=== PATIENT | male | born 1965 | race Caucasian/White ===

== ENCOUNTER 2022-06-02 08:36 | Day surgery (SDC) | payer BC, SELFPAY ==
[2022-06-02] VITALS (11 sets, daily range): BP systolic 122–158; BP diastolic 76–97; PULSE 45–57; RESP 14–20; TEMP 36.5–37; O2SAT 94–99; BMI 36.9
[2022-06-02] MEDS: LACTATED RINGERS 1000 ML 1,000 ML 100 ML IV (09:10)
[2022-06-02] MEDS: SODIUM CHLORIDE 0.9 % (FLUSH) 10 ML SYRINGE IVF (09:16)
[2022-06-02] MEDS: CEFAZOLIN 2 GM INJ IVP (12:05)
[2022-06-02] MEDS: LACTATED RINGERS 1000 ML 1,000 ML IV (12:15)
[2022-06-02] MEDS: BUPIVACAINE 0.25% 30 ML 12 ML INJECTION (12:41)
--- NOTE | 2022-06-02 12:47 | PM.GSPRC ---
Operative Note Date of procedure: 06/02/22 Type of Procedure: Open umbilical hernia repair Procedure Description: After discussing the risks and benefits of the procedure, the patient signed informed consent.? The operative site was marked and the patient was brought to the operating room and placed on the operating table in supine position.? Care was taken to pad the patient's pressure points.?? The patient was then intubated by anesthesia.?? The operative site was then prepped and draped in the usual sterile fashion.? A time-out was then performed. Local anesthetic was injected into the fascia, skin and subcutaneous tissues. A curvilinear incision was made at the umbilicus. Dissection was carried down into the subcutaneous tissue using cautery. The hernia sac was encountered and care was taken to not enter it. Dissection was taken down to the fascia, and the umbilical stalk was carefully dissected off of the hernia sac. The hernia sac contained fat. The fat was incarcerated and unable to be reduced. I entered the hernia sac and freed the hernia circumferentially from the fascial edges. Once I did this, I was able to gradually reduce the fat into the abdomen. The fascial edges were then cleared circumferentially. The hernia was 2 cm in size and so the decision was made to use a piece of mesh. A preperitoneal pocket was created using a combination of blunt dissection and cautery. Hemostasis appeared adequate. Once the posterior fascia was clear, a piece of medium Ventralex ST hernia mesh was placed in the preperitoneal space with care to ensure that it laid flat. This was secured into place using 2 0 PDS interrupted sutures. The tails were then trimmed and the fascial opening was closed with interrupted Nurolon suture. The umbilicus was reapproximated to the fascia. The skin was then closed with running absorbable suture. A sterile dressing was then applied. Instrument sponge and needle counts were correct at the end the case ? The patient was then woken and transported to the recovery area in stable condition. ? The patient tolerated the procedure well. Findings: 2 cm fat containing incarcerated umbilical hernia Anesthesia: HUMZA Surgeon: Destiney Raines MD Estimated blood loss (mL): 5 Condition: stable Disposition: PACU
--- NOTE | 2022-06-02 13:05 | W.ANESCHARGE ---
Anesthesia Charges Start Date/Time Anesthesia Start Date: 06/02/22 Anesthesia Start Time: 11:58 Stop Date/Time Anesthesia Stop Date: 06/02/22 Anesthesia Stop Time: 13:03 Summary Emergency: No
--- NOTE | 2022-06-02 14:52 | W.ANESCHARGE ---
Anesthesia Charges Start Date/Time Anesthesia Start Date: 06/02/22 Anesthesia Start Time: 11:58 Stop Date/Time Anesthesia Stop Date: 06/02/22 Anesthesia Stop Time: 13:03 Summary Emergency: No
== END 2022-06-02 14:20 | disposition home or self-care (01) ==
PROVIDERS: PCP Surgery; Visit Provider Surgery
PROC: (CPT 49587; principal; 2022-06-02 10:00)
DX: K42.0 Umbilical hernia with obstruction, without gangrene (principal)
CPT/HCPCS: 49587; 00750; 00800; A4467; C1781; J0330; J0690; J1100; J1885; J2250; J2405; J2704; J2710; J3010; J3490; J7120

== ENCOUNTER 2023-07-10 16:41 | Emergency (ER) | payer BC, SELFPAY ==
[2023-07-10 16:52] VITALS: BP 189/105; PULSE 56; RESP 18; TEMP 36.1; O2SAT 96; BMI 36.6
--- NOTE | 2023-07-10 18:11 | CRLHL7_ITS ---
For Patients: As a result of the Century Cures Act, medical imaging exams and procedure reports are released immediately into your electronic medical record. You may view this report before your referring provider. If you have questions, please contact your health care provider. INDICATION: Dyspnea on exertion. TECHNIQUE: Chest 2 views. COMPARISON: None. FINDINGS: Cardiovascular and mediastinum: Heart size and vasculature are normal in caliber and appearance. Lungs and pleural spaces: Lungs are clear. No sign of infiltrate or mass. No sign of pleural effusion. No pneumothorax. Bones and soft tissues: No significant findings. IMPRESSION: No acute or significant findings. Dictated by Rickey Key MD @ 07/10/2023 7:45:20 PM (Electronically Signed)
--- NOTE | 2023-07-10 18:33 | ED.GENADULT ---
HPI - General Adult General Date Seen: 07/10/23 Chief complaint: Shortness of Breath/Dyspnea Stated complaint: Difficulty breathing, triage nurse- blood clot? Time Seen by Provider: 07/10/23 17:43 History of Present Illness HPI narrative: This is a very pleasant 58-year-old gentleman accompanied to the ER this evening by his for evaluation of shortness of breath. He has a past medical history including overweight, hypertension, dyslipidemia, gout. He has no previous history of heart or lung disease, coronary disease, asthma, CHF. He has never been a smoker. He has noted some mild dyspnea especially orthopnea when he tries to lay down tonight that is been going on perhaps for about a year so. He notes that he gets short of breath when he lays down and tries to go to sleep. He is generally able to sleep through the night and has not awoken by paroxysmal episodes of dyspnea. He notes that his been a little bit more prominent for the past couple of weeks. He does not really have shortness of breath with exertion. It sounds like he does not really do a lot of walking. He also notes he sometimes gets short of breath when he bends over. In particular, he had a short walk about 100 [address] to his [place] stand to go deer hunting this weekend it did not get short of breath. Once he was up in his stand he did feel short of breath when he bent sideways to get a drink from his water bottle. Because the symptoms had gotten worse lately he tried to call his primary care office to get an appointment for a checkup. When he called the office today, the triage nurse told to come straight to the ER. He did not think that his symptoms were that severe or acute so he did go to work today and came in this evening after work. He does not have any palpitations. No dizzy spells. No cough or fever. He does note that several coworkers were recently sick with a URI, but he was having symptoms long before he was around them. No history of asthma or emphysema. Related Data Home Medications Medication Instructions Recorded Confirmed allopurinol 300 mg tablet 300 mg PO DAILY 05/31/22 06/02/22 aspirin 81 mg tablet,delayed 81 mg PO DAILY 05/31/22 06/02/22 release (Ecotrin Low Strength) atorvastatin 20 mg tablet (Lipitor) 20 mg PO DAILY 05/31/22 06/02/22 calcium polycarbophil 625 mg 625 mg PO BID 05/31/22 06/02/22 tablet (Fiber (calcium polycarbophil)) losartan 100 mg tablet (Cozaar) 100 mg PO DAILY 05/31/22 06/02/22 metoprolol tartrate 25 mg tablet 75 mg PO BID 05/31/22 06/02/22 terazosin 2 mg capsule 2 mg PO DAILY 05/31/22 06/02/22 Previous Rx's Medication Instructions Recorded hydrocodone 5 mg-acetaminophen 325 1 tab PO Q6H PRN pain #14 tabs 06/02/22 mg tablet Allergies Allergy/AdvReac Type Severity Reaction Status Date / Time No Known Drug Allergies Allergy Verified 06/02/22 08:44 [facility] Medical History (Updated 07/10/23 @ 21:52 by Ruiz Delacruz MD) GERD (gastroesophageal reflux disease) ?K21.9 - Gastro-esophageal reflux disease without esophagitis (ICD-10) Umbilical hernia without obstruction or gangrene ?K42.9 - Umbilical hernia without obstruction or gangrene (ICD-10) Mixed hyperlipidemia ?E78.2 - Mixed hyperlipidemia (ICD-10) History of gout ?Z87.39 - Personal history of other diseases of the musculoskeletal system and connective tissue (ICD-10) Essential (primary) hypertension ?I10 - Essential (primary) hypertension (ICD-10) Surgical History (Updated 05/31/22 @ 08:37 by Anil Echevarria RN) History of hernia repair ?Z98.890 - Other specified postprocedural states (ICD-10) ?Z87.19 - Personal history of other diseases of the digestive system (ICD-10) Social History Smoking Status: Never smoker Do you use any of these nicotine containing products: None Second hand tobacco smoke exposure: No How often do you have a drink containing alcohol: 4 or more times a week How many standard drinks containing alcohol do you have on a typical day: 3 or 4 How often do you have six or more drinks on one occasion: Monthly AUDIT-C Alcohol total score: 7 Non-prescribed substance use: denies use service: No Exam Narrative: Exam Narrative: Constitutional: Appears well-developed and well-nourished. Heavyset and well muscled. Robust. Alert. Conversant. Non toxic. HENT: Head: Atraumatic. Nose: Nose normal. Mouth/Throat: Oral mucosa is clear and moist. no trismus. Pharynx normal. Tonsils symmetric. No tonsillar enlargement, erythema, or exudate. Eyes: Conjunctivae normal. EOM normal. Pupils equal, round, and reactive to light. No scleral icterus. Neck: Normal range of motion. Neck supple. No tracheal deviation present. No JVD Cardiovascular: Normal rate, regular rhythm. No gallop. No friction rub. No murmur heard. Symmetric radial and PT artery pulses Pulmonary/Chest: Effort normal. No stridor. No respiratory distress. No wheezes. No rales. No rhonchi . No tenderness. Abdominal: Soft. Bowel sounds normal. No distension. No mass. No tenderness. No rebound. No guarding. Musculoskeletal: RUE: Normal range of motion. No tenderness. No deformity LUE: Normal range of motion. No tenderness. No deformity RLE: Normal range of motion. No edema. No tenderness. No deformity LLE: Normal range of motion. No edema. No tenderness. No deformity Lymph: No cervical adenopathy. Neurological: Alert and oriented to person, place, and time. Normal strength. CN II-VII intact. No sensory deficit. GCS eye subscore is 4. GCS verbal subscore is 5. GCS motor subscore is 6. Normal coordination Skin: Skin is warm and dry. No rash noted. No pallor. Normal capillary refill. Psychiatric: Normal mood. Normal affect. Const: Vital Signs, click to edit/add: Vital Signs - 24 hr 07/10/23 16:52 Temperature 97 F L Pulse Rate [Pulse Oximeter] 56 L Respiratory Rate 18 Blood Pressure [Ri t Upper Arm] 189/105 H Pulse Oximetry 96 Oxygen Delivery Me thod Room Air Course Course ED Course: Recheck-no change. Oxygen still normal. Discussed findings with the patient and his . They are in agreement with plan for outpatient workup. Vital Signs Vital signs: Initial Vital Signs Temperature 97 F L 07/10/23 16:52 Temperature Source Temporal Artery Scan 07/10/23 16:52 Pulse Rate 56 L 07/10/23 16:52 Pulse Rhythm Regular 07/10/23 16:52 Respiratory Rate 18 07/10/23 16:52 Blood Pressure 189/105 H 07/10/23 16:52 Blood Pressure Mean 133 H 07/10/23 16:52 Blood Pressure Position Sitting 07/10/23 16:52 Pulse Oximetry 96 07/10/23 16:52 Oxygen Delivery Method Room Air 07/10/23 16:52 Vital Signs Temperature 97 F L 07/10/23 16:52 Pulse Rate 56 L 07/10/23 16:52 Respiratory Rate 18 07/10/23 16:52 Blood Pressure 189/105 H 07/10/23 16:52 Pulse Oximetry 96 07/10/23 16:52 Oxygen Delivery Method Room Air 07/10/23 16:52 Temperature 97 F L 07/10/23 16:52 Pulse Rate 56 L 07/10/23 16:52 Respiratory Rate 18 07/10/23 16:52 Blood Pressure 189/105 H 07/10/23 16:52 Pulse Oximetry 96 07/10/23 16:52 Oxygen Delivery Method Room Air 07/10/23 16:52 Medications Administered Medications: Discontinued Medications Generic Name Dose Route Start Last Admin Trade Name Freq PRN Reason Stop Dose Admin Albuterol 2.5 mg 07/10/23 18:11 07/10/23 18:36 Albuterol Sulfate 2.5 Mg/3 Ml Vial.Neb NEB 07/10/23 18:12 2.5 mg ONCE ONE Administration Medical Decision Making MDM Narrative Medical decision making narrative: This patient presents to the ER today for evaluation of shortness of breath, in particular orthopnea and shortness of breath with flexion that has been present for the past year or so but getting worse over the past few weeks. Differential was broad. No evidence of palpitations, syncope or other cardiac dysrhythmia. We considered possible ACS, however he is not really having any chest pain, just shortness of breath. workup with EKG and troponin is negative. Given time since onset of symptoms, I do not think the patient needs to be admitted for further sets of enzymes. EKG shows no evidence for pericarditis. Clinical presentation not suggestive of myocarditis. He does have sinus bradycardia. He is on beta-miroslava for his blood pressure. Chest x-ray shows no evidence for pneumonia, pneumothorax, pulmonary edema, pleural effusion, rib fracture, cardiomegaly. Mediastinum is normal on the x-ray. The patient has no ripping or tearing pain through to the back and has symmetric pulses on exam, no other acute neuro findings so I doubt aortic dissection. Risk of radiation and contrast exposure would outweigh the benefit of CT angiogram. We considered PE for this patient. He did have a recent trip to [place]. However no evidence for a DVT. Symptoms are actually present long before his trip to [place]. He is overall low risk, but not 0 risk. Screening D-dimer is normal. Therefore will hold off on CT [place]. He does not have a history of COPD/asthma. Nonsmoker. He did have very scant wheezing on my lung exam today. We administered nebulizer.[]. He is not anemic. No heart murmur to suggest aortic stenosis. However with his dyspnea on exertion I do think he needs primary care follow-up for echocardiogram and further workup. With reasonable clinical confidence, I think the patient is safe for outpatient follow up. Discussed return precautions. Questions answered. Patient voices comfort with the plan. Lab Data Labs: Lab Results 07/10/23 Range/Units 18:35 WBC 6.69 (4.50-11.00) K/uL RBC 3.97 L (4.30-5.90) m/uL Hgb 12.8 L (13.5-17.5) gm/dL Hct 37.5 (37.0-53.0) % MCV 95 (80-100) fL MCH 32 (26-34) pg MCHC 34 (32-36) gm/dL RDW Coeff of Kelly 12.7 (11.5-15.5) % Plt Count 163 (140-440) K/uL Neut % (Auto) 54.3 (42.0-72.0) % Lymph % (Auto) 35.7 (20-44) % [place] % (Auto) 5.7 (0.0-11.0) % Eos % (Auto) 3.9 (0.0-7.0) % Baso % (Auto) 0.4 (0.0-3.0) % Neut # (Auto) 3.63 (1.7-7.0) K/uL Lymph # (Auto) 2.39 (0.90-2.90) K/uL [place] # (Auto) 0.40 (0.00-0.90) K/UL Eos # (Auto) 0.26 (0.00-0.50) K/uL Baso # (Auto) 0.03 (0.00-0.30) K/uL Abs Immat Gran (auto) 0.00 (0.00-0.30) K/uL Imm/Tot Granulo (auto) 0.0 % D-Dimer Quant (PE/DVT) 0.41 (0.00-0.50) ug/ml Sodium 138 (135-149) mmol/L Potassium 4.4 (3.6-5.1) mmol/L Chloride 105 (96-114) mmol/L Carbon Dioxide 25 (20-32) mmol/L Anion Gap 8 (7-15) mEq/L BUN 15 (7-30) mg/dL Creatinine 0.5 (0.5-1.5) mg/dL Estimated Creat Clear 138.38 Estimated GFR 117 ml/min Glucose 138 H (60-115) mg/dL Calcium 8.9 (8.4-10.6) mg/dL Troponin I 0.02 (0.01-0.04) ng/mL NT-Pro-B Natriuret Pep 69 pg/mL ECG Data Attestation: I personally reviewed and interpreted this ECG as follows: Interpretation: Sinus bradycardia with first-degree AV block. Rate 57 AK 216 QRS axis normal axis. No pathologic Q-waves. ST segment/T wave: No ST segment elevation or depression. QTc: 4 12 Discharge Plan Discharge Clinical Impression: Appendicitis, Acute dyspnea Patient Disposition: Home, Self-Care Condition: Stable Instructions: Dyspnea (ED) Additional Instructions: As we discussed, please come back to the ER right away if you have any worsening symptoms, such as worsening shortness of breath, chest pain, fever, cough, fainting spells, or any concerns. Please follow-up with your primary care provider through the [facility] as soon as possible for further testing, such as an echocardiogram. Prescriptions: No Action allopurinol 300 mg tablet 300 mg PO DAILY aspirin [Ecotrin Low Strength] 81 mg tablet,delayed release (DR/EC) 81 mg PO DAILY atorvastatin [Lipitor] 20 mg tablet 20 mg PO DAILY calcium polycarbophil [Fiber (calcium polycarbophil)] 625 mg tablet 625 mg PO BID losartan [Cozaar] 100 mg tablet 100 mg PO DAILY metoprolol tartrate 25 mg tablet 75 mg PO BID terazosin 2 mg capsule 2 mg PO DAILY hydrocodone-acetaminophen 5-325 mg tablet 1 tab PO Q6H PRN (Reason: pain) Qty: 14 0RF Follow Up/Referrals: Sheree Vicente PA-C [Primary Care Provider] - Stand Alone Forms: MyHealth Info Instructions
[2023-07-10] MEDS: ALBUTEROL SULFATE 2.5 MG/3 ML VIAL.NEB NEB (18:36)
[2023-07-10 18:44] LABS: Basophils Absolute Auto 0.03 K/uL (0.00-0.30); Basophils Percent Auto 0.4 % (0.0-3.0); Eosinophils Absolute Auto 0.26 K/uL (0.00-0.50); Eosinophils Percent Auto 3.9 % (0.0-7.0); Hematocrit 37.5 % (37.0-53.0); Hemoglobin* 12.8 gm/dL (13.5-17.5); Lymphocytes Absolute Auto 2.39 K/uL (0.90-2.90); Lymphocytes Percent Auto 35.7 % (20-44); Mean Corpuscular HGB Conc 34 gm/dL (32-36); Mean Corpuscular Hemoglobin 32 pg (26-34); Mean Corpuscular Volume 95 fL (80-100); Monocytes Percent Auto 5.7 % (0.0-11.0); Neutrophils Absolute Auto 3.63 K/uL (1.7-7.0); Neutrophils Percent Auto 54.3 % (42.0-72.0); Platelet Count* 163 K/uL (140-440); RDW Coefficient of Variation % 12.7 % (11.5-15.5); Red Blood Count 3.97 m/uL (4.30-5.90); White Blood Count* 6.69 K/uL (4.50-11.00)
[2023-07-10 18:45] LABS: Slide Review Reflex No
[2023-07-10 18:58] LABS: Chloride* 105 mmol/L (96-114); Potassium* 4.4 mmol/L (3.6-5.1); Sodium* 138 mmol/L (135-149)
[2023-07-10 19:00] LABS: Creatinine* 0.5 mg/dL (0.5-1.5); Est. Creatinine Clearance* 138.38; Estimated Glomerular Filt Rate 117 ml/min
[2023-07-10 19:01] LABS: Anion Gap 8 mEq/L (7-15); Blood Urea Nitrogen* 15 mg/dL (7-30); Calcium* 8.9 mg/dL (8.4-10.6); Carbon Dioxide* 25 mmol/L (20-32); Glucose* 138 mg/dL (60-115)
[2023-07-10 19:02] LABS: D Dimer Quantitative* 0.41 ug/ml (0.00-0.50)
[2023-07-10 19:13] LABS: Troponin I* 0.02 ng/mL (0.01-0.04)
[2023-07-10 19:16] LABS: NT Pro B Type NatriureticPept* 69 pg/mL
== END 2023-07-10 21:52 | disposition home or self-care (01) ==
PROVIDERS: Emergency Provider Emergency Medicine; PCP Student in an Organized Health Care Education/Training Program
DX: K37 Unspecified appendicitis (principal); R06.00 Dyspnea, unspecified
CPT/HCPCS: 36415; 71046; 80048; 83880; 84484; 85025; 85379; 93005; 94640; 99283; 99284; 99285